=== PATIENT | female | born 1935 ===

== ENCOUNTER 2018-02-27 05:00 | Day surgery (SDC) | payer OTHER ==
[~2018-02-27 05:00] MED LIST: BALANCE B-1001 EACH PO; COZAAR50 MG PO; GLIPIZIDE ER2.5 MG PO; LIPITOR20 MG PO; PLAVIX75 MG PO; [UNRECOGNIZED DRUG - CODE] PO
== END 2018-02-27 13:00 | disposition home or self-care (01) ==
LOC: EDBD → CIR.AMB 05:00
DX: G50.0 Trigeminal neuralgia (principal)

== ENCOUNTER → 2022-01-11 | Day surgery (SDC) | payer OTHER ==
[~2022-01-11] VITALS: Ht 157.5 cm; Wt 65.8 kg
[~2022-01-11] MED LIST changes: +CYMBALTA30 MG PO; +GABAPENTIN600 MG PO
== END | disposition home or self-care (01) ==
LOC: ADM 01-10 09:45 → CIR.AMB 05:00
PROVIDERS: ATTEND Anesthesiology Pain Medicine
DX: G50.0 Trigeminal neuralgia (principal); G50.1 Atypical facial pain